=== PATIENT | male | born 1945 | race Caucasian/White ===

== ENCOUNTER 2016-12-22 15:26 | Emergency (ER) | payer MEDICARE, OTHER ==
[~2016-12-22] VITALS: Ht 175.3 cm; Wt 60.4 kg
[~2016-12-22 15:26] MED LIST: ASP81CT PO; ASPI-875 PO; Atorvastatin Calcium PO; BP MED; CRV25T PO; OMEG1CAP51 PO; SILD100T PO; SILD25TA PO; Ticagrelor PO
[2016-12-22] MEDS ORDERED: RT-ALBUTEROL/IPRATROPIUM 3 ML (DUONEB) VIAL ONE (15:38)
[2016-12-22 15:59] LABS: BASOPHILS # (AUTO) 0.1 10^3/uL (0.0-0.1); BASOPHILS % (AUTO) 1 % (0-10); EOSINOPHILS # (AUTO) 0.7 10^3/uL (0.0-0.3); EOSINOPHILS % (AUTO) 10 % (0-10); LYMPHOCYTES # (AUTO) 1.5 X 10^3 (1.0-4.0); LYMPHOCYTES % (AUTO) 21 % (12-44); MEAN CORPUSCULAR HEMOGLOBIN 32 PG (25-34); MEAN CORPUSCULAR HGB CONC 33 G/DL (32-36); MEAN CORPUSCULAR VOLUME 97 FL (80-99); MEAN PLATELET VOLUME 10.3 FL (7.4-10.4); MONOCYTES # (AUTO) 0.7 X 10^3 (0.0-1.0); MONOCYTES % (AUTO) 10 % (0-12); NEUTROPHILS # (AUTO) 4.3 X 10^3 (1.8-7.8); NEUTROPHILS % (AUTO) 59 % (42-75); PLATELET COUNT 198 10^3/uL (130-400); RED BLOOD COUNT 4.32 10^6/uL (4.35-5.85); RED CELL DISTRIBUTION WIDTH 13.4 % (10.0-14.5); WHITE BLOOD COUNT 7.4 10^3/uL (4.3-11.0)
[2016-12-22 16:02] LABS: PROTHROMBIN TIME PATIENT 12.4 SEC (12.2-14.7)
[2016-12-22 16:10] LABS: ALANINE AMINOTRANSFERASE 20 U/L (0-55); ALBUMIN 3.9 G/DL (3.2-4.5); ANION GAP 8 MMOL/L (5-14); ASPARTATE AMINO TRANSFERASE 20 U/L (5-34); BILIRUBIN,TOTAL 1.2 MG/DL (0.1-1.0); BLOOD UREA NITROGEN 12 MG/DL (7-18); BUN/CREATININE RATIO 12; CALCIUM 8.7 MG/DL (8.5-10.1); CARBON DIOXIDE 25 MMOL/L (21-32); CHLORIDE 100 MMOL/L (98-107); CREATININE SERUM 0.98 MG/DL (0.60-1.30); GFR ESTIMATED > 60; GLUCOSE 167 MG/DL (70-105); POTASSIUM 4.3 MMOL/L (3.6-5.0); SODIUM 133 MMOL/L (135-145); TOTAL PROTEIN 6.8 G/DL (6.4-8.2); hs C REACTIVE PROTEIN 0.09 MG/DL (0.00-0.50)
[2016-12-22 16:16] LABS: TROPONIN I < 0.30 NG/ML (<0.30)
--- NOTE | 2016-12-22 16:16 | Diagnostic Imaging Report ---
Indication: Shortness of breath x4 days Portable chest 4:09 PM Heart size and pulmonary vascular normal. Lungs are clear. There are no effusions or pneumothoraces. Impression: Negative chest Dictated by: Dictated on workstation # [id number]
--- NOTE | 2016-12-22 16:24 | ED General ---
General Chief Complaint: Respiratory Problems Stated Complaint: SOA Nursing Triage Note: PT REPORTS SOA FOR SEVERAL DAYS WITH WORSENING TODAY. HE ALSO C/O PRODUCTIVE COUGH. Nursing Sepsis Screen: No Definite Risk Source of Information: Patient Exam Limitations: No Limitations History of Present Illness Time Seen by Provider: 16:02 Initial Comments Here with report of shortness of air over the last few days with cough and productive sputum but today just short of air. Denies chest pain but is weak with shortness of air. He has never been on breathing treatments but he is a long-term smoker. Denies nausea or vomiting. Timing/Duration: 2-3 Days Severity: Moderate Modifying Factors: improves with Rest Associated Systoms: No Chest Pain, Cough, No Fever/Chills, No Nausea/Vomiting, Shortness of Air, No Weakness Allergies and Home Medications Allergies Coded Allergies: No Known Drug Allergies (Unverified , 06/28/11) Home Medications Aspirin 81 Mg Tablet.dr, 81 MG PO DAILY, (Reported) Carvedilol 25 Mg Tablet, 25 MG PO BID, (Reported) Docosahexanoic Acid/Epa 1 Cap Capsule, 1,000 MG PO DAILY, (Reported) Sildenafil Citrate 100 Mg Tablet, 100 MG PO DAILY PRN for ERECTILE DYSFUNCTION, (Reported) [Atorvastatin Calcium] 80 MG TABLET, 80 MG PO HS, #30 Ref 4 Prescribed by: MATTHEW HUITRON on 09/13/14 1202 [Ticagrelor] 90 MG TABLET, 90 MG PO BID, #60 Ref 4 Prescribed by: MATTHEW HUITRON on 09/13/14 1202 Constitutional: see HPI, No chills, No fever EENTM: no symptoms reported Respiratory: see HPI, cough, short of breath, wheezing Cardiovascular: No chest pain, No edema Gastrointestinal: No abdominal pain, No nausea, No vomiting Genitourinary: no symptoms reported Musculoskeletal: no symptoms reported All Other Systems Reviewed Negative Unless Noted: Yes Past Zumygtt-Vusyak-Kgusmu Hx Patient Social History Alcohol Use: Regular Use Recreational Drug Use: No Smoking Status: Current Everyday Smoker Type Used: Cigarettes 2nd Hand Smoke Exposure: No Recent Foreign Travel: No Contact w/Someone Who Travel: No Recent Infectious Disease Expo: No Recent Hopitalizations: Yes Immunizations Up To Date Tetanus Booster (TDap): Less than 5yrs Date of Pneumonia Vaccine: December 26, 2011 Surgeries HX Surgeries: Yes (RIGHT BKA, AAA) Surgeries: Coronary Stent, Orthopedic Respiratory Hx Respiratory Disorders: No Cardiovascular Hx Cardiac Disorders: Yes Cardiac Disorders: Hypertension Neurological Hx Neurological Disorders: No Reproductive System Sexually Transmitted Disease: No HIV/AIDS: No Genitourinary Hx Genitourinary Disorders: No Gastrointestinal Hx Gastrointestinal Disorders: No Musculoskeletal Hx Musculoskeletal Disorders: Yes (rt aka) Musculoskeletal Disorders: Amputee, Chronic Back Pain Endocrine Hx Endocrine Disorders: No HEENT HX ENT Disorders: No Cancer Hx Cancer: No Psychosocial Hx Psychiatric Problems: No Integumentary HX Skin/Integumentary Disorder: No Blood Transfusions Hx Blood Disorders: No Adverse Reaction to a Blood Tr: No Reviewed Nursing Assessment Reviewed/Agree w Nursing PMH: Yes Family Medical History Family Medial History: Myocardial infarction 19 FATHER (54 when ) Respiratory disorder 19 MOTHER ( at 57 with lung ca) Physical Exam-Suspected Sepsis Physical Exam Vital Signs Vital Sign - Last 12Hours 12/22/16 12/22/16 15:30 15:36 Temp 98.7 Pulse 74 Resp 31 B/P (MAP) 172/79 Pulse Ox 86 O2 Delivery Room Air O2 Flow Rate 2.00 Capillary Refill : Less Than 3 Seconds Blood Pressure Mean: 110 General Appearance: WD/WN, Mild Distress (respiratory) HEENT: PERRL/EOMI, Pharynx Normal Neck: Non Tender, Supple Respiratory: Decreased Breath Sounds, Wheezing (expiratory) Cardiovascular: Regular Rate, Rhythm, No Murmur Gastrointestinal: Non Tender, Soft Back: Normal Inspection, No CVA Tenderness, No Vertebral Tenderness Extremity: Normal Range of Motion, Non Tender Neurologic/Psychiatric: Alert, Oriented x3 Skin: normal color, warm/dry Focused Exam Lactic Acid Level Laboratory Tests Test 12/22/16 15:36 Lactic Acid Level 1.59 MMOL/L (0.50-2.00) Progress/Results/Core Measures Suspected Sepsis Recent Fever Within 48 Hours: No Infection Criteria Present: None New/Unexplained Altered Menta: No Sepsis Screen: No Definite Risk Sepsis Diagnosis: SIRS Temperature:98.7 Pulse: 74 Respiratory Rate: 31 Laboratory Tests 12/22/16 15:36: White Blood Count 7.4 Blood Pressure 172 /79 Mean: 110 Laboratory Tests 12/22/16 15:36: Creatinine 0.98, INR Comment 1.0, Platelet Count 198, Total Bilirubin 1.2H Results/Orders Lab Results Laboratory Tests Test 12/22/16 15:36 12/22/16 17:40 Range/Units White Blood Count 7.4 4.3-11.0 10^3/uL Red Blood Count 4.32 L 4.35-5.85 10^6/uL Hemoglobin 13.9 13.3-17.7 G/DL Hematocrit 42 40-54 % Mean Corpuscular Volume 97 80-99 FL Mean Corpuscular Hemoglobin 32 25-34 PG Mean Corpuscular Hemoglobin Concent 33 32-36 G/DL Red Cell Distribution Width 13.4 10.0-14.5 % Platelet Count 198 130-400 10^3/uL Mean Platelet Volume 10.3 7.4-10.4 FL Neutrophils (%) (Auto) 59 42-75 % Lymphocytes (%) (Auto) 21 12-44 % Monocytes (%) (Auto) 10 0-12 % Eosinophils (%) (Auto) 10 0-10 % Basophils (%) (Auto) 1 0-10 % Neutrophils # (Auto) 4.3 1.8-7.8 X 10^3 Lymphocytes # (Auto) 1.5 1.0-4.0 X 10^3 Monocytes # (Auto) 0.7 0.0-1.0 X 10^3 Eosinophils # (Auto) 0.7 H 0.0-0.3 10^3/uL Basophils # (Auto) 0.1 0.0-0.1 10^3/uL Prothrombin Time 12.4 12.2-14.7 SEC INR Comment 1.0 0.8-1.4 Activated Partial Thromboplast Time 32 24-35 SEC D-Dimer 0.99 H 0.00-0.49 UG/ML Sodium Level 133 L 135-145 MMOL/L Potassium Level 4.3 3.6-5.0 MMOL/L Chloride Level 100 98-107 MMOL/L Carbon Dioxide Level 25 21-32 MMOL/L Anion Gap 8 5-14 MMOL/L Blood Urea Nitrogen 12 7-18 MG/DL Creatinine 0.98 0.60-1.30 MG/DL Estimat Glomerular Filtration Rate > 60 BUN/Creatinine Ratio 12 Glucose Level 167 H 70-105 MG/DL Lactic Acid Level 1.59 0.50-2.00 MMOL/L Calcium Level 8.7 8.5-10.1 MG/DL Total Bilirubin 1.2 H 0.1-1.0 MG/DL Aspartate Amino Transf (AST/SGOT) 20 5-34 U/L Alanine Aminotransferase (ALT/SGPT) 20 0-55 U/L Alkaline Phosphatase 61 40-136 U/L Troponin I < 0.30 <0.30 NG/ML C-Reactive Protein High Sensitivity 0.09 0.00-0.50 MG/DL B-Type Natriuretic Peptide 52.2 <100.0 PG/ML Total Protein 6.8 6.4-8.2 G/DL Albumin 3.9 3.2-4.5 G/DL Urine Color YELLOW Urine Clarity CLEAR Urine pH 6 5-9 Urine Specific [place] 1.010 L 1.016-1.022 Urine Protein 3+ H NEGATIVE Urine Glucose (UA) NEGATIVE NEGATIVE Urine Ketones NEGATIVE NEGATIVE Urine Nitrite NEGATIVE NEGATIVE Urine Bilirubin NEGATIVE NEGATIVE Urine Urobilinogen NORMAL NORMAL MG/DL Urine Leukocyte Esterase 3+ H NEGATIVE Urine RBC (Auto) 2+ H NEGATIVE Urine RBC NONE /HPF Urine WBC >100 H /HPF Urine Squamous Epithelial Cells 0-2 /HPF Urine Crystals NONE /LPF Urine Bacteria FEW H /HPF Urine Casts NONE /LPF Urine Mucus NEGATIVE /LPF Urine Culture Indicated YES My Orders Orders - JUANITO YU MD Albuterol/Ipra Inhalation Soln (Duoneb I (12/22/16 15:38) Cbc With Automated Diff (12/22/16 15:47) Comprehensive Metabolic Panel (12/22/16 15:47) Lactic Acid Analyzer (12/22/16 15:47) Blood Culture (12/22/16 15:47) Sputum Culture (12/22/16 15:47) Ua Culture If Indicated (12/22/16 15:47) Protime With Inr (12/22/16 15:47) Partial Thromboplastin Time (12/22/16 15:47) Chest 1 View, Ap/Pa Only (12/22/16 15:47) O2 (12/22/16 15:47) Saline Lock/Iv-Start (12/22/16 15:47) Saline Lock/Iv-Start (12/22/16 15:47) Ekg Tracing (12/22/16 15:47) Troponin I (12/22/16 15:47) Vital Signs Adult Sepsis Patie Q1HR (12/22/16 15:47) Remove Rings In Anticipation O (12/22/16 15:47) BNP (12/22/16 15:47) Hs C Reactive Protein (12/22/16 15:47) Fibrin Degradation Products (12/22/16 15:47) Ct Angio Chest W (12/22/16 17:42) Ns Iv 1000 Ml (Sodium Chloride 0.9%) (12/22/16 17:42) Iohexol Injection (Omnipaque 350 Mg/Ml 1 (12/22/16 18:00) Ns (Ivpb) (Sodium Chloride 0.9% Ivpb Bag (12/22/16 18:00) Prednisone Tablet (Deltasone Tablet) (12/22/16 18:00) Urine Culture (12/22/16 17:40) Medications Given in ED Current Medications Medications Dose Ordered Sig/Stan Route Start Time Stop Time Status Last Admin Dose Admin Albuterol/ Ipratropium 3 ml STK-MED ONCE .ROUTE 12/22/16 15:38 12/22/16 15:42 DC 12/22/16 15:43 3 ML Ceftriaxone Sodium 1000 mg/ Sodium Chloride 50 ml @ 100 mls/hr ONCE ONCE IV 12/22/16 18:30 12/22/16 18:59 12/22/16 18:32 100 MLS/HR Iohexol 150 ml ONCE ONCE IV 12/22/16 18:00 12/22/16 18:01 DC 12/22/16 18:05 125 ML Prednisone 40 mg ONCE ONCE PO 12/22/16 18:00 12/22/16 18:01 DC 12/22/16 18:14 40 MG Sodium Chloride 100 ml ONCE ONCE IV 12/22/16 18:00 12/22/16 18:01 DC 12/22/16 18:05 80 ML Sodium Chloride 1,000 ml @ 0 mls/hr Q0M ONCE IV 12/22/16 17:42 12/22/16 17:44 DC 12/22/16 17:53 0 MLS/HR Vital Signs/I&O Vital Sign - Last 12Hours 12/22/16 12/22/16 12/22/16 15:30 15:36 15:43 Temp 98.7 Pulse 74 Resp 31 B/P (MAP) 172/79 Pulse Ox 86 93 92 O2 Delivery Room Air Nasal Cannula O2 Flow Rate 2.00 2.00 Capillary Refill : Less Than 3 Seconds Blood Pressure Mean: 110 Progress Note : Progress Note Seen and evaluated. IV, labs, EKG and chest x-ray ordered. Duo neb ordered. Patient markedly improved afterwards. D-dimer is elevated. CT angiogram ordered. UA also ordered. UTI noted. Rocephin 1 g IV. Normal saline 1 L bolus to flush contrast. Monitor patient. 1858: CT results noted. This was discussed with the patient. Patient has known mild aortic aneurysm. In his own 40 mg by mouth. Albuterol MDI teaching done. Discharged home with return precautions. Patient verbalize understanding instructions and agreement with plan. ECG Initial ECG Impression Date: December 22, 2016 Initial ECG Impression Time: 15:32 Initial ECG Rate: 77 Initial ECG Rhythm: Normal Sinus Comment Sinus rhythm with right bundle branch block and left anterior fascicular block. Overall similar rhythm to previous of 09/12/14. No evidence of ST elevation SD. Interpreted by me. Diagnostic Imaging Diagonstic Imaging: Xray Plain Films/CT/US/NM/MRI: chest Comments NAME: [facility] REC#: [id number] PT STATUS: REG ER : 1945 PHYSICIAN: JUANITO YU MD ADMIT DATE: 12/22/16/ER Signed Date of Exam: 12/22/16 CHEST 1 VIEW, AP/PA ONLY Indication: Shortness of breath x4 days Portable chest 4:09 PM Heart size and pulmonary vascular normal. Lungs are clear. There are no effusions or pneumothoraces. Impression: Negative chest Dictated by: Dictated on workstation # [id number] Dict: 12/22/16 161 Trans: 12/22/16 161 Interpreted by: JUANITO PATRICIA Electronically signed by: JUANITO PATRICIA 12/22/161612 Diagonstic Imaging: CT Plain Films/CT/US/NM/MRI: chest Comments [facility]IA [facility], [facility]. [place], [place] NAME: [facility] REC#: [id number] PT STATUS: REG ER : 1945 PHYSICIAN: JUANITO YU MD ADMIT DATE: 12/22/16/ER Draft Date of Exam:12/22/16 CT ANGIO CHEST W PROCEDURE: CT angiography of the chest with contrast. TECHNIQUE: Multiple contiguous axial images were obtained through the chest after uneventful bolus administration of intravenous contrast. Reconstructed CTA MIP acquisitions were also performed. INDICATION: Difficulty breathing. Shortness of air. Cough. COMPARISON: 09/03/2015. FINDINGS: There is no evidence of acute pulmonary embolus to the first subsegmental division of the pulmonary arteries. Main pulmonary arterial trunk is mildly prominent, as it measures 3.2 cm in diameter. Ascending aorta is borderline aneurysmally dilated measuring 3.9 cm in diameter. There is moderate calcified aortic atherosclerosis. There is no evidence of dissection or focal stenosis of the thoracic aorta. Note is also made of calcified coronary atherosclerosis. Heart size is within normal limits. There is no large pericardial effusion. Multiple subcentimeter mediastinal lymph nodes are identified. Otherwise, no pathologically enlarged or morphologically abnormal adenopathy is seen within the mediastinum, selena, nor axilla. Evaluation on lung windows demonstrates mild air trapping greatest within the upper lung العلي consistent with background of COPD. There is also some bronchiectasis. There is no focal consolidation, pleural effusion, nor pneumothorax. There is mild image degradation secondary to motion artifact, but no pulmonary nodules or masses are identified. Bony structures show no acute abnormalities. Included portions of the upper abdomen are unremarkable. IMPRESSION: 1. No evidence of acute pulmonary embolus to the first subsegmental division of the pulmonary arteries. 2. Borderline aneurysmal dilatation of the ascending aorta with diffuse calcified aortic and coronary atherosclerosis. 3. Background of COPD. 4. No focal infiltrate. Dictated on workstation # [id number] Dict: 12/22/16 1827 Trans: 12/22/16 1835 [facility] [id number] Interpreted by: HERRERA RANDOLPH Electronically signed by: Departure Impression Impression: Primary Impression: Acute bronchitis Qualified Codes: J20.9 - Acute bronchitis, unspecified Additional Impression: Urinary tract infection Qualified Codes: N30.00 - Acute cystitis without hematuria Disposition: HOME, SELF-CARE Condition: Improved Departure-Patient Inst. Decision time for Depature: 18:46 Referrals: BHAVNA LORA DO (PCP) Primary Care Physician FRANDY BROUSSARD (Family) Primary Care Physician Patient Instructions: Acute Bronchitis, Adult (DC), Urinary Tract Infection, Adult (DC) Add. Discharge Instructions: All discharge instructions reviewed with patient and/or family. Voiced understanding. Take medications as directed. Follow-up with your DrLinda in a few days for recheck. Return for worse pain, fever, vomiting, weakness, breathing problems or other concerns as needed. Use inhaler as directed. Scripts Albuterol Sulfate (PROAIR HFA) 1 Puff Puff 2 PUFF IH Q4H Y for WHEEZING, #1 INHALER 0 Refills 1 PUFF = 90 MCG Prov: JUANITO YU MD 12/22/16 Prednisone (Prednisone) 20 Mg Tab 40 MG PO DAILY, #10 TAB 0 Refills Prov: JUANITO YU MD 12/22/16 Cefdinir (Cefdinir) 300 Mg Capsule 300 MG PO BID, #14 CAP 0 Refills Prov: JUANITO YU MD 12/22/16 JUANITO YU MD December 22, 2016 16:24
[2016-12-22] MEDS ORDERED: NS IV 1000 ML 1,000 ML IV ONE (17:42)
[2016-12-22 17:48] LABS: BILIRUBIN,URINE NEGATIVE (NEGATIVE); KETONES,URINE NEGATIVE (NEGATIVE); LEUKOCYTE ESTERASE ,URINE 3+ (NEGATIVE); NITRITE,URINE NEGATIVE (NEGATIVE); PH,URINE 6 (5-9); PROTEIN,URINE 3+ (NEGATIVE); UROBILINOGEN,URINE NORMAL (NORMAL)
[2016-12-22 17:58] LABS: SQUAMOUS EPITHELIAL CELL,UR 0-2 /HPF; WBC,URINE >100 /HPF
[2016-12-22] MEDS ORDERED: predniSONE 20 MG TAB PO ONE (18:00)
[2016-12-22] MEDS ORDERED: IOHEXOL 350 MG/ML 150 ML (OMNIPAQUE 350) VIAL IV ONE (18:00)
[2016-12-22] MEDS ORDERED: NS 100 ML (IVPB) BAG IV ONE (18:00)
[2016-12-22] MEDS ORDERED: cefTRIAXone INJECTION 1,000 MG in NS (IVPB) 50 ML IV ONE (18:30)
--- NOTE | 2016-12-22 18:35 | Diagnostic Imaging Report ---
PROCEDURE: CT angiography of the chest with contrast. TECHNIQUE: Multiple contiguous axial images were obtained through the chest after uneventful bolus administration of intravenous contrast. Reconstructed CTA MIP acquisitions were also performed. INDICATION: Difficulty breathing. Shortness of air. Cough. COMPARISON: 09/03/2015. FINDINGS: There is no evidence of acute pulmonary embolus to the first subsegmental division of the pulmonary arteries. Main pulmonary arterial trunk is mildly prominent, as it measures 3.2 cm in diameter. Ascending aorta is borderline aneurysmally dilated measuring 3.9 cm in diameter. There is moderate calcified aortic atherosclerosis. There is no evidence of dissection or focal stenosis of the thoracic aorta. Note is also made of calcified coronary atherosclerosis. Heart size is within normal limits. There is no large pericardial effusion. Multiple subcentimeter mediastinal lymph nodes are identified. Otherwise, no pathologically enlarged or morphologically abnormal adenopathy is seen within the mediastinum, selena, nor axilla. Evaluation on lung windows demonstrates mild air trapping greatest within the upper lung العلي consistent with background of COPD. There is also some bronchiectasis. There is no focal consolidation, pleural effusion, nor pneumothorax. There is mild image degradation secondary to motion artifact, but no pulmonary nodules or masses are identified. Bony structures show no acute abnormalities. Included portions of the upper abdomen are unremarkable. IMPRESSION: 1. No evidence of acute pulmonary embolus to the first subsegmental division of the pulmonary arteries. 2. Borderline aneurysmal dilatation of the ascending aorta with diffuse calcified aortic and coronary atherosclerosis. 3. Background of COPD. 4. No focal infiltrate. Dictated by: Dictated on workstation # [id number]
[2016-12-22] MEDS ORDERED: RX-ALBUTEROL INHALER (PROAIR) 8 GM IH ONE (18:49)
[2016-12-22] MEDS ORDERED: RX-ALBUTEROL INHALER (VENTOLIN HFA) 18 GM IH STA (18:50)
[2016-12-22] MEDS ORDERED: RT-ALBUINH IH (18:54)
[2016-12-22] MEDS ORDERED: PRD20T PO (18:54)
[2016-12-22] MEDS ORDERED: CEFD300C3 PO (18:54)
[2016-12-22 19:03] VITALS: BP 175/75
== END 2016-12-22 19:06 | disposition home or self-care (01) ==
LOC: EDUNIT# 15:26 → ER 15:27
DX: J20.9 Acute bronchitis, unspecified (principal); N39.0 Urinary tract infection, site not specified; J44.9 Chronic obstructive pulmonary disease, unspecified; I10 Essential (primary) hypertension; I71.9 Aortic aneurysm of unspecified site, without rupture; I45.2 Bifascicular block; F17.210 Nicotine dependence, cigarettes, uncomplicated; Z79.82 Long term (current) use of aspirin; Z79.899 Other long term (current) drug therapy; Z95.5 Presence of coronary angioplasty implant and graft
CPT/HCPCS: 36415; 71010; 71275; 80053; 81000; 83605; 83880; 84484; 85025; 85379; 85610; 85730; 86141; 87040; 87070; 87088; 87205; 94640; 96361; 96367

== ENCOUNTER 2017-03-07 09:44 | Emergency (ER) | payer MEDICARE, OTHER ==
[~2017-03-07] VITALS: Ht 167.6 cm; Wt 69.9 kg
[~2017-03-07 09:44] MED LIST changes: +ALBU18HF2 INH; +AMLO10TA2 PO; +ATOR80TA76 PO; +CARV25TA PO; +CEFD300C3 PO; +IPRA3AMP INH; +LISI-552 PO; +OMEG-109 PO; +PRD20T PO; +PRED10TA22 PO; +RT-ALBUINH IH
[2017-03-07] MEDS ORDERED: NOREPINEPHRINE 4 MG/4 ML (LEVOPHED) AMP IV ONE (10:04)
[2017-03-07] MEDS ORDERED: NOREPINEPHRINE 4 MG in D5W 250 ML (IVPB) 250 ML IV SCH (10:15)
[2017-03-07] MEDS ORDERED: RT-ALBUTEROL SULF 2.5 MG/3 ML PRE-MIX VIAL ONE (10:28)
[2017-03-07] MEDS ORDERED: RT-IPRATROPIUM (ATROVENT) 0.5MG/2.5ML AMP IH ONE (10:28)
[2017-03-07] MEDS ORDERED: methylPREDNISolone 125 MG (Solu-MEDROL) VIAL ONE (10:30)
[2017-03-07] MEDS ORDERED: DOPamine DRIP 250 ML IV SCH (10:45)
[2017-03-07 10:48] VITALS: BP 0/0
--- NOTE | 2017-03-07 12:37 | ED CPR ---
HPI-CPR General Chief Complaint: Code Blue Stated Complaint: CODE BLUE Nursing Triage Note: Pt was having coffee with a friend and collapsed. CPR was started immedidately. EMS gave 4 amps of Epi and 1 amp of Bicarb. Epi gtt 2 mg /500ml started by EMS BP 60/30, P-70, end tital 22. Sepsis Screen: No Definite Risk Source of Information: EMS, Old Records Exam Limitations: Other (intubated) History of Present Illness Time Seen by Provider: 09:15 Initial Comments Met the EMS at the back door and received the report that the patient was witnessed by a friend drinking a cup of coffee and collapsed in front of her. The family initiated CPR nearly immediately. Family Called EMS about 08:30 and then EMS arrived about 0901 where they found the patient to be in asystole and began CPR gave an amp of bicarbonate and several amps of epinephrine. The patient was in asystole upon arrival and they were told by the family than ADD was applied to his chest prior to EMSs arrival and no shock had been advised at this time. At that time they felt that the patient was probably not going to recover given his extensive history of COPD and recent hospitalization for COPD exacerbation and CABG they called for advice. After discussing the case with me , I told them that they should complete the round of CPR and if unable to get anything other than asystole they should discontinue CPR as it had been at that time 45 minutes. Shortly later the EMS called back and said that they had return of spontaneous circulation. He was intubated at 5-6 minutes after their arrival with a Combitube. He had good airway. They brought him in to the ER. Allergies and Home Medications Allergies Coded Allergies: No Known Drug Allergies (Unverified , 06/28/11) Home Medications Albuterol Sulfate 18 Gm Hfa.aer.ad, 2 PUFF INH Q4H PRN for SHORTNESS OF BREATH, (Reported) Amlodipine Besylate 10 Mg Tablet, 10 MG PO DAILY, (Reported) Aspirin 81 Mg Tablet.dr, 81 MG PO DAILY, (Reported) Atorvastatin Calcium 80 Mg Tablet, 80 MG PO DAILY, (Reported) Carvedilol 25 Mg Tablet, 25 MG PO BID, (Reported) Ipratropium/Albuterol Sulfate 3 Ml Ampul.neb, 3 ML INH RTQ4HR, #60 Prescribed by: LEYLA CHRISTIAN on 01/15/17 1134 Lisinopril 20 Mg Tablet, 20 MG PO DAILY, (Reported) [place]-3 Fatty Acids/Fish Oil 1 Each Capsule, 1,200 MG PO DAILY, (Reported) Prednisone 10 Mg Tab.ds.pk, 10 MG PO DAILY, #21 Take 6 tabs(60mg)daily,decrease by 1 tab(10MG)daily. Prescribed by: LEYLA CHRISTIAN on 01/15/17 1134 Sildenafil Citrate 100 Mg Tablet, 100 MG PO DAILY PRN for ERECTILE DYSFUNCTION, (Reported) Review of Systems Constitutional: see HPI (patient was intubated orotracheally and unable to give a coverage of review of systems. There is no family present.) Past Itdoofr-Cvmezd-Rjqfbl Hx Patient Social History Alcohol Use: Past History Recreational Drug Use: Yes (alcohol) Smoking Status: Unknown if Ever Smoked Type Used: Cigarettes 2nd Hand Smoke Exposure: No Recent Foreign Travel: No Contact w/Someone Who Travel: No Recent Infectious Disease Expo: No Recent Hopitalizations: Yes Immunizations Up To Date Tetanus Booster (TDap): Less than 5yrs Date of Pneumonia Vaccine: December 26, 2015 Surgeries HX Surgeries: Yes Surgeries: Amputation, Cardiac, Coronary Stent, Orthopedic, Vascular Surgery Respiratory Hx Respiratory Disorders: Yes Respiratory Disorders: COPD Cardiovascular Hx Cardiac Disorders: Yes (AAA REPAIR 1996; RIGHT FEM-POP BYPASS, THEN RIGHT AKA FOR SEVERE PVD) Cardiac Disorders: Aneurysm, Coronary Artery Disease, Heart Attack, Hypertension, Peripheral Vascular Neurological Hx Neurological Disorders: No Reproductive System Sexually Transmitted Disease: No HIV/AIDS: No Genitourinary Hx Genitourinary Disorders: No Gastrointestinal Hx Gastrointestinal Disorders: No Musculoskeletal Hx Musculoskeletal Disorders: Yes (rt aka) Musculoskeletal Disorders: Amputee, Chronic Back Pain Endocrine Hx Endocrine Disorders: No HEENT HX ENT Disorders: No Cancer Hx Cancer: No Psychosocial Hx Psychiatric Problems: No Integumentary HX Skin/Integumentary Disorder: No Blood Transfusions Hx Blood Disorders: No Adverse Reaction to a Blood Tr: No Family Medical History Family Medial History: Myocardial infarction 19 FATHER (54 when ) Respiratory disorder 19 MOTHER ( at 57 with lung ca) Physical Exam Vital Signs Vital Sign - Last 12Hours 03/07/17 03/07/17 09:44 10:00 Temp 94.2 Pulse 70 Resp 14 B/P (MAP) 60/30 Pulse Ox 92 O2 Delivery Room Air FiO2 100 Capillary Refill : Greater Than 3 Seconds General Appearance: Severe Distress HEENT: Other (Combitube in good position with good breath sounds orotracheally intubated.) Neck: Normal Inspection, No JVD Respiratory: Respiratory Distress (severe), Wheezing (severe bilateral all العلي) Cardiovascular: Other (patient is in cardiac arrest upon arrival on ROS see a femoral pulse was palpable by Doppler ultrasound.) Gastrointestinal: No Organomegaly, Soft, Abnormal Bowel Sounds (no bowel sounds ) Extremity: No Pedal Edema, Other (right below the knee amputation) Neurologic/Psychiatric: No Alert, Other (nonresponsive without any sedation.) Skin: Cool, Pallor, Other (dry) Lymphatic: No Adenopathy Reason for Intubation: cardiac arrest Date of ETT Placement: Mar 07, 2017 Time of ETT Placement: 10:30 Intubation Method: orotracheal Tube Size: 7.50 Positive End Tide CO2: Yes Breath Sounds after Intubation: bilateral-equal Intubation Complications: no complications Post Intubation Xray: No Progress Using a 3 Mac ET tube over a obturator was easily passed cross the vocal cords and using the PCO2 as well as colorimetric capnography and bilateral breath sounds was confirmed to be in place. We did not of time to get a chest x-ray as the patient soon after intubation. His end-tidal CO2 however for about 10 minutes stayed in the range of 40. Did not require sedation or paralysis the patient was flaccid and are trying to secure more permanent airway solution. Progress/Results/Core Measures Results/Orders Lab Results Laboratory Tests Test 03/07/17 09:57 Range/Units Glucometer 142 H 70-110 MG/DL My Orders Orders - RASHEL HUTCHISON Norepinephrine (Levophed) (03/07/17 10:04) D5w 250 Ml (Ivpb) (... W/Norepinephrine (03/07/17 10:15) Ipratropium 0.02% Neb Solution (Atrovent (03/07/17 10:28) Albuterol Pre-Mix Nebs (Rt) (Proventil P (03/07/17 10:28) Methylprednisolone Sod Succ (Solu-Medrol (03/07/17 10:30) Dopamine Drip (Dopamine Drip) (03/07/17 10:45) Calcium Chloride 10% Injection (Calcium (03/07/17 14:00) Epinephrine 1 Mg Injection (Adrenalin I (03/07/17 14:00) Sodium Chloride Flush (Catheter Flush Sy (03/07/17 14:00) Dopamine Drip (Dopamine Drip) (03/07/17 14:00) Calcium Chloride 10% Injection (Calcium (03/07/17 14:00) Epinephrine 1 Mg Injection (Adrenalin I (03/07/17 14:00) Sodium Chloride Flush (Catheter Flush Sy (03/07/17 14:00) Dopamine Drip (Dopamine Drip) (03/07/17 14:00) Medications Given in ED Current Medications Medications Dose Ordered Sig/Stan Route Start Time Stop Time Status Last Admin Dose Admin Methylprednisolone Sodium Succinate 125 mg STK-MED ONCE .ROUTE 03/07/17 10:30 03/07/17 10:36 DC 03/07/17 10:35 125 MG Vital Signs/I&O Vital Sign - Last 12Hours 03/07/17 03/07/17 03/07/17 03/07/17 09:44 09:44 10:00 10:20 Temp 94.2 94.2 Pulse 70 70 Resp 14 14 B/P (MAP) 60/30 60/30 Pulse Ox 92 100 100 O2 Delivery Room Air Ambu-Bag Ambu Bag FiO2 100 03/07/17 03/07/17 10:44 10:48 Pulse 0 Resp 0 Pulse Ox 0 FiO2 80 Blood Pressure Mean: 40 Critical Care Note Critical Care Start Time: 09:15 Stop Time: 10:49 Total Time (minutes) 94 Date of : Mar 07, 2017 Time of : 10:48 Progress By the time he hit the trauma bay 3 he had already lost his pulse again as well as his blood pressure. The EMS reports prior to that he had bounding pulses and a blood pressure in the 160s systolic. We initiated more epinephrine and started coding him again for about 2 or 3 rounds and got return of spontaneous circulation. We got him on epinephrine drip and shortly thereafter lost his pulse again. He was in pulseless electrical activity so we restarted CPR. Within 2 rounds of CPR we had given him calcium chloride, another mg of Epi as well as a breathing treatment for his extremely wheezy and tight sounding breath sounds. He regained a good blood pressure over 140 systolic as well as a pulse so we put him on epinephrine and dopamine drip maxed out. He maintained a blood pressure and pulse long enough for us to get a Combitube pulled and a ET tube 7.5 replaced at 24 at the gums on first try. Good breath sounds felt bilaterally and no air sounds through the epigastric region. We have put him on the vent and had given him 125 mg of Solu-Medrol as well as initiated an hour- long albuterol treatment through the ventilator. As I was calling to give report to the doctor who would be accepting him the patient began to bradycardia down and lost pulse and his end-tidal CO2 went from 40 down to 13. He had no heart tones on auscultation or see spontaneously breathing or with a pulse dopplerable at either the femoral or carotid artery. His pupils were fixed. He was in asystole. He was decided that time that we should discontinue CPR is ER he received over 1 hour cumulative CPR. He was called at 1048 in the morning. There were no family present however there was a friend who was allowed to come in and view the body. A phone call was made to the nearest son and a voicemail was left. Eventually staff was available to get in contact with family and it was determined that no autopsy would be desired from the family's standpoint. Please reference the nursing documentation for more detail. Departure Communication Family Conversation VM left for Alber Larose. 1320. Nursing staff was able to get a hold of the next of can and notify them. Please see their notes. Impression Impression: Primary Impression: Cardiac arrest Additional Impressions: COPD exacerbation Respiratory failure Qualified Codes: J96.21 - Acute and chronic respiratory failure with hypoxia; J96.22 - Acute and chronic respiratory failure with hypercapnia Disposition: 20 Condition: (1048) Departure-Patient Inst. Referrals: BHAVNA LORA DO (PCP) Primary Care Physician FRANDY BROUSSARD (Family) Primary Care Physician RASHEL HUTCHISON Mar 07, 2017 12:37
[2017-03-07] MEDS ORDERED: CALCIUM CHLORIDE 1 GM/10 ML (IMS) SYR INJ ONE ×2 (14:00)
[2017-03-07] MEDS ORDERED: DOPamine DRIP 400,000 MCG/250 ML BAG IV ONE ×2 (14:00)
[2017-03-07] MEDS ORDERED: EPINEPHrine INJECTION 1 MG/ML AMP IJ ONE ×2 (14:00)
[2017-03-07] MEDS ORDERED: CATHETER FLUSH 10 ML SYR IV ONE ×2 (14:00)
== END 2017-03-07 10:38 | disposition expired ==
LOC: ER 09:44 → EDUNIT# 09:44 → ER 10:38
DX: I46.9 Cardiac arrest, cause unspecified (principal); J44.1 Chronic obstructive pulmonary disease with (acute) exacerbation; J96.90 Respiratory failure, unspecified, unspecified whether with hypoxia or hypercapnia; I25.10 Atherosclerotic heart disease of native coronary artery without angina pectoris; I25.2 Old myocardial infarction; I10 Essential (primary) hypertension; I73.9 Peripheral vascular disease, unspecified; Z82.49 Family history of ischemic heart disease and other diseases of the circulatory system; Z80.1 Family history of malignant neoplasm of trachea, bronchus and lung; Z89.611 Acquired absence of right leg above knee; Z95.1 Presence of aortocoronary bypass graft; Z79.82 Long term (current) use of aspirin; Z95.5 Presence of coronary angioplasty implant and graft
CPT/HCPCS: 31500; 82962; 94640; 94799; 99291